=== PATIENT | male | born 1990 | race Hispanic/Latino ===

== ENCOUNTER 2024-09-20 03:40 | Inpatient (IN) | payer SELFPAY ==
[2024-09-20 04:32] LABS: Absolute Monocytes 0.2 K/uL (0.1-1.3); Absolute Neutrophil 9.1 K/uL (1.8-8.0); Basophils % 0.4 % (0-1.3); Eosinophils % 0.1 % (0-4.4); Hematocrit 46.4 % (39.6-49.0); Hemoglobin 15.7 g/dL (13.6-17.9); MCH 28.6 pg (27.0-35.0); MCHC 33.9 g/dL (32.0-36.0); MCV 84.5 fL (80-100); MPV 8.1 fL (7.6-11.3); Monocytes % 2.3 % (3.3-12.3); Neutrophils % 87.2 % (41.7-73.7); Platelets 329 thou/uL (152-406); RBC Red Blood Cell Count 5.48 M/uL (4.33-5.43); Red Cell Distribution Width 13.6 % (12.1-15.2)
[2024-09-20 04:59] LABS: Anion Gap 12.6 mEq/L (5.0-15.0)
[2024-09-20 05:01] LABS: Potassium 1.6 mEq/L (3.5-5.1); Troponin High Sensitivity 65.4 pg/mL (<58.9)
[2024-09-20] MEDS ORDERED: POTASSIUM CL SA 10 MEQ TAB PO ONE (05:05)
[2024-09-20] MEDS ORDERED: ASPIRIN 81 MG CHEWABLE TABLET ONE (05:05)
[2024-09-20] MEDS ORDERED: KCL 20 MEQ/100 mL IVPB 100 ML IV ONE ×2 (05:06→09:42)
[2024-09-20] MEDS ORDERED: NA CHLORIDE 0.9% 1,000 ML ONE (05:06)
[2024-09-20] MEDS ORDERED: Magnesium Sulfate 2gm IVPB 2 G/50 ML BAG IV ONE (05:06)
[2024-09-20 05:25] LABS: Band Neutrophils 8 % (0-1); Blood Morphology Comment NOT SEEN (NOT SEEN); Differential Total Cells Count 100; Lymphocytes 10 % (15-42); Monocytes 2 % (0-10); Platelet Estimate ADEQ; Reactive Lymphocytes 2 %; Segmented Neutrophils 78 % (40-80)
--- NOTE | 2024-09-20 06:10 | RAD REPORT ---
EXAMINATION: CT HEAD WITHOUT CONTRAST CT CERVICAL SPINE WITHOUT CONTRAST CLINICAL INDICATION: Male, 34 years old. BL UE weakness TECHNIQUE: Axial CT images from the skull base to the vertex without intravenous contrast. Axial CT i mages through the cervical spine were obtained without intravenous contrast. Sagittal and coronal reformatted images were created from the data set. Coronal and sagittal reformatted images were creat ed from the data set. One or more of the following dose reduction techniques were used: Automated exposure control, adjustment of the mA and/or kV according to patient size, and/or iterative reconstr uction. Unless otherwise specified, incidental findings do not require dedicated imaging follow-up. [id number]. COMPARISON: No prior exam. FINDINGS: Head: FINDINGS: INTRACRANIAL: No acute intracranial hemorrhage. No hydrocephalus. No mass effect or midline shift. No significant white matter disease. VASCULATURE: No visualized abnormalities in the arteries or dural venous sinuses. SCALP/SKULL: No significant soft tissue or osseous abnormalities. SINUSES: The visualized paranasal sinuses are predominantly clear. No mastoid effusion. Cervical spine: ALIGNMENT: Loss of normal cervical lordosis which may be positional. BONE: Vertebral body heights are maintained. No aggressive osseous lesions. DEGENERATIVE: No significant focal degenerative changes. SOFT TISSUE: No significant abnormalities in the soft tissue of the neck. No acute findings in the stephanie ng apices. IMPRESSION: 1. CT Head: No acute intracranial abnormality. 2. CT Cervical spine: No acute fracture or traumatic malalignment of the cervical spine. Electronically signed by: Luiz Daniels MD 09/20/2024 05:56 AM CDT Due to temporary technical issues with the PACS/[employer] reporting system, reports are being josue d by the in-house radiologist without review as a courtesy to ensure prompt reporting the interpreting radiologist is fully responsible for the content of the report. Transcribed Date/Time: 09/20/2024 6:10 AM
--- NOTE | 2024-09-20 06:11 | RAD REPORT ---
EXAM: CT CHEST ABDOMEN PELVIS ANGIOGRAPHY WITH IV CONTRAST CLINICAL INDICATION: Male, 34 years eval for aortic pathology, BL UE weakness, spine pathology TECHNIQUE: CTA of the aorta was obtained including the chest, abdomen and pelvis, with IV contrast, a s per department protocol. Axial, sagittal and coronal reconstructions were obtained. Post-processing was applied at the acquisition scanner with concurrent physician supervision which in cludes 3D reconstructions, MIPs, volume rendered images and/or shaded surface rendering. One or more of the following dose reduction techniques were used: Automated exposure control, adjustment of the mA and/or kV according to the patient size, and/or iterative reconstruction. Unless otherwise specified, incidental findings do not require dedicated imaging follow-up. [id number]. COMPARISON: No prior exam. FINDINGS: Chest: LOWER NECK: Visualized thyroid gland and soft tissues are normal. LUNGS AND AIRWAYS: Airways are clear. No evidence of airspace or interstitial process.No suspicious a nd/or stable pulmonary nodules. PLEURA: No pleural effusion. No pneumothorax. Hemidiaphragms are normally positioned. MEDIASTINUM AND LYMPH NODES: No mediastinal mass or fluid collection. Normal size mediastinal, hilar, and axillary lymph nodes. THORACIC AORTA: No thoracic aortic aneurysm. PULMONARY ARTERIES: Caliber is within normal limits. HEART: Normal heart size. No coronary calcifications.No significant pericardial effusion. Abdomen/Pelvis UPPER GI: No significant abnormality. LIVER: Hepatic steatosis, but otherwise unremarkable. GALLBLADDER/BILE DUCTS: No biliary ductal dilatation. PANCREAS: No mass, ductal dilation, or leatha-pancreatic fluid. SPLEEN: Unremarkable. ADRENALS: No adrenal masses. KIDNEYS AND URETERS: Normal size and contour. No hydronephrosis.No suspicious renal mass. ABDOMINAL AORTA AND OTHER VESSELS: Normal caliber aorta and IVC. PERITONEUM: No abnormal free fluid. No free air. LYMPH NODES: No pathologic lymphadenopathy. ABDOMINAL WALL: Fat-containing left inguinal hernia which is small. SMALL BOWEL/COLON: Small bowel has normal course and caliber. No colonic wall thickening or pericolon ic inflammatory changes.Normal appendix. URINARY BLADDER: Underdistended but grossly unremarkable. REPRODUCTIVE ORGANS: No pathologic process. MUSCULOSKELETAL: No acute or suspicious osseous abnormality. ADDITIONAL FINDINGS: None. IMPRESSION: No aortic aneurysm or dissection. No acute or significant abnormalities in the chest, abdomen, or pel vis. Electronically signed by: Luiz Daniels MD 09/20/2024 06:00 AM CDT Due to temporary technical issues with the PACS/[employer] reporting system, reports are being josue d by the in-house radiologist without review as a courtesy to ensure prompt reporting the interpreting radiologist is fully responsible for the content of the report. Transcribed Date/Time: 09/20/2024 6:10 AM
[2024-09-20 08:08] LABS: Specific Gravity > 1.030 (1.005-1.030); Sqamous Epithelial None Seen /HPF (None Seen); Urine Bacteria None Seen /HPF (<20); Urine Bilirubin NEGATIVE (Negative); Urine Blood 1+ (Negative); Urine Clarity Clear (Clear); Urine Color Colorless (Yellow); Urine Culture Reflex Order NOT NEEDED; Urine Glucose NEGATIVE (Negative); Urine Ketones NEGATIVE (Negative); Urine Micro Reflex YN NO BILL MICROSCOPIC; Urine Nitrite NEGATIVE (Negative); Urine Protein NEGATIVE (Negative); Urine Urobilinogen Normal (Normal); Urine WBC <5 /HPF (<5); Urine pH 5.5 (5.0-7.0)
[2024-09-20] MEDS ORDERED: LORazepam 2 MG/ML VIAL ONE (08:09)
[2024-09-20 08:17] LABS: Barbiturates NEGATIVE (NEGATIVE); Benzodiazepines NEGATIVE (NEGATIVE); Cocaine NEGATIVE (NEGATIVE); METHAMPHETAM NEGATIVE (NEGATIVE); Methadone NEGATIVE (NEGATIVE); Opiates NEGATIVE (NEGATIVE); Phencyclidine NEGATIVE (NEGATIVE); THC Cannibis NEGATIVE (NEGATIVE)
--- NOTE | 2024-09-20 10:19 | RAD REPORT ---
EXAMINATION: MRI CERVICAL SPINE WITHOUT CONTRAST CLINICAL INDICATION: Male, 34 years old. BL UE weakness, eval for central cord syndrome TECHNIQUE: Multiplanar multisequence MR images were obtained of the cervical spine without intravenou s contrast. Unless otherwise specified, incidental findings do not require dedicated imaging follow-up. COMPARISON: No prior exam. FINDINGS: ALIGNMENT: The cervical spine shows normal alignment. BONE: Vertebral bodies are normal in height. There is a normal marrow signal pattern. Uncovertebral j oint and facet arthropathy contribute to the findings below. CORD: The cervical spinal cord is normal in size, contour and signal intensity. BRAIN: The included intracranial structures are grossly normal. The craniocervical junction is normal . SOFT TISSUE: The paraspinal soft tissues are normal. EVALUATION OF THE INDIVIDUAL LEVELS: C2-3: Unremarkable. C3-4: Unremarkable. C4-5: Unremarkable. C5-6: Broad-based posterior disc bulge. No significant central canal or foraminal stenosis.. C6-7: Broad-based posterior disc bulge. No central canal stenosis. Mild left more than right neural f oraminal narrowing. C7-T1: Unremarkable. IMPRESSION: No acute or significant cervical spine abnormalities. Mild early discogenic and facet changes most no tably at C6-7, contributing to mild left more than right neural foraminal narrowing. No cord signal abnormality.
--- NOTE | 2024-09-20 10:24 | RAD REPORT ---
EXAMINATION: MRI THORACIC SPINE WITHOUT CONTRAST CLINICAL INDICATION: Male, 34 years old. BL UE weakness, eval for central cord syndrome TECHNIQUE: Multiplanar multisequence MR images were obtained of the thoracic spine without IV gadolin ium contrast. Unless otherwise specified, incidental findings do not require dedicated imaging follow-up. COMPARISON: No prior exam. FINDINGS: Localizer capsule positioned opposite C7-T1 level. ALIGNMENT: The lumbar spine has normal alignment. BONE: Vertebral bodies are normal in height. There is a normal marrow signal pattern. CORD: No abnormal signal in the cord. No cord edema, suspicion for mass, or myelomalacia. SOFT TISSUE: The included paraspinal soft tissues and retroperitoneal structures are grossly normal. No abnormal masses or enhancement. EVALUATION OF THE INDIVIDUAL LEVELS: No significant disc herniation. No central canal stenosis or for aminal narrowing. IMPRESSION: No significant thoracic spine abnormalities.
--- NOTE | 2024-09-20 10:34 | EDPHYS ---
Physician Documentation [facility] Name: Gabriel Lemons Age: 34 yrs Sex: Male : 1990 Arrival Date: 09/20/2024 Time: 03:40 Bed 6 Private MD: ED Physician Sukumar Gutierrez HPI: 09/20 04:13 This 34 yrs old Male presents to ER via Ambulatory with complaints of ec2 Numbness, Weakness, Shortness Of Breath. 04:13 Patient arrives today for evaluation of bilateral upper extremity mobility issues. ec2 Patient reports that he was having some back pain yesterday approximately 36 hours prior to arrival, was seen, diagnosed with a lumbar strain and states that has been progressively getting worse. Patient complaining of weakness in the bilateral upper extremities and issues with movement. Denies any falls injuries or trauma. No history of spinal cord pathology, no chronic medical problems, no neuromuscular disorders. Patient denies any bowel or bladder incontinence, denies any saddle anesthesia.. Historical: - Allergies: 03:55 No Known Allergies; bm8 - Home Meds: 03:55 Propranolol Oral [Active]; bm8 - PMHx: 03:55 None; bm8 - PSHx: 03:55 None; bm8 - Immunization history:: Adult Immunizations up to date. - Infectious Disease History:: Denies. - Social history:: Smoking status: Reported history of juuling and/or vaping. Patient/guardian denies using alcohol, street drugs. ROS: 04:13 Constitutional: as per hpi ec2 Exam: 04:13 CT study not indicated or reported. Reason for not performing CT: performing, not a ec2 stroke 04:13 Constitutional: GEN: NAD Head: atraumatic Eyes: EOMI Ears: External ears are normal. CV: regular rate LUNGS: no respiratory distress ABD: non-distended SKIN: no evidence of rashes MSK: no evidence of trauma. No C/C/L-spine TTP or deformities noted. Neuro: Cranial nerves II through XII intact, strength is 4 out of 5 in the bilateral upper extremities with intact sensation in the bilateral lower extremities. Bilateral lower extremities with equal strength 5 out of 5 as well as equal sensation. Vital Signs: 03:53 BP 161 / 91; Pulse 94; Resp 18; Temp 97.3; Pulse Ox 98% ; Weight 113.4 kg; Height 6 ft. bm8 1 in. ; Pain 6/10; 04:50 BP 130 / 76; Pulse 82; Resp 18; Temp 97.3; Pulse Ox 95% ; Pain 6/10; bm8 06:27 BP 133 / 75; Pulse 97; Resp 18; Temp 97.3; Pulse Ox 97% ; Pain 0/10; bm8 07:08 BP 135 / 78; Pulse 96; Resp 18; Pulse Ox 94% ; bm8 07:53 BP 125 / 77; Pulse 96; Pulse Ox 96% on R/A; ll1 09:49 BP 110 / 70; Pulse 96; Resp 17; Pulse Ox 98% on R/A; ll1 11:00 BP 138 / 86; Pulse 100; Resp 18; Pulse Ox 99% on R/A; ld1 12:00 BP 118 / 7; Pulse 109; Resp 24; Pulse Ox 99% on R/A; ld1 13:00 BP 125 / 70; Pulse 113; Resp 20; Pulse Ox 99% on R/A; ld1 14:00 BP 130 / 52; Pulse 104; Resp 25; Pulse Ox 99% on R/A; ld1 15:00 BP 121 / 85; Pulse 100; Resp 23; Pulse Ox 96% on R/A; ld1 03:53 Body Mass Index 32.98 (113.40 kg, 185.42 cm) bm8 03:53 Pain Scale: Adult bm8 04:50 Pain Scale: Adult bm8 06:27 Pain Scale: Adult bm8 Luis Coma Score: 04:21 Eye Response: spontaneous(4). Motor Response: obeys commands(6). Verbal Response: dd2 oriented(5). Total: 15. 04:50 Eye Response: spontaneous(4). Motor Response: obeys commands(6). Verbal Response: bm8 oriented(5). Total: 15. 06:27 Eye Response: spontaneous(4). Motor Response: obeys commands(6). Verbal Response: bm8 oriented(5). Total: 15. MDM: 03:50 Medical Screening Exam initiated ec2 04:19 TNKase (Tenecteplase) Screening: Not Applicable. Data reviewed: vital signs, nurses ec2 notes. 04:26 ED course: EKG independently reviewed and interpreted by fl, shows normal sinus rhythm, ec2 rate of 85, no acute ST segment elevations, intervals are nonactionable.. 05:03 ED course: Potassium with marked hypokalemia at 1.6. CBC is nonactionable. Does have ec2 troponin elevation at 65.4. Will give the patient p.o., and IV potassium, will give the patient magnesium as well.. Possible also hypokalemic periodic paralysis. 06:43 ED course: Will sign patient out to oncoming physician with pending imaging, ec2 reassessment, admission for elevated cardiac enzymes as well as hypokalemia requiring replenishment.. 06:43 Transition of care: After a detail discussion of the patient's case, care is ec2 transferred to Sukumar Gutierrez DO. 07:00 Transition of care: Care assumed from Isiah Tang MD. ED course: 34-year-old male with ms3 bilateral upper extremity weakness. Potassium found to be low. Patient pending MRI cervical and thoracic spine.. 10:34 Differential diagnosis: metabolic disorder, drug effects, Spinal stenosis. ms3 Consideration of Admission/Observation Patient was admitted/placed on observation. Management of patient was discussed with the following: Airborne Sensor Specialist: Dr Peoples- He will consult. Trend troponins. I considered the following discharge prescriptions or medication management in the emergency department Medications were administered in the Emergency Department. See MAR. Independent interpretation of the following test(s) in the Emergency Department EKG: See my EKG interpretation above. Counseling: I had a detailed discussion with the patient and/or guardian regarding the historical points, exam findings, and any diagnostic results supporting the discharge/admit diagnosis, lab results, radiology results, the need for further work-up and treatment in the hospital. 09/20 04:08 Order name: Basic Metabolic Panel; Complete Time: 06:15 ec2 09/20 04:08 Order name: CBC with Diff; Complete Time: 06:15 ec2 09/20 04:08 Order name: Troponin HS; Complete Time: 06:15 ec2 09/20 04:16 Order name: UAM; Complete Time: 08:18 ec2 09/20 04:16 Order name: UDS; Complete Time: 08:18 ec2 09/20 04:50 Order name: Manual Differential; Complete Time: 06:15 EDMS 09/20 05:16 Order name: Creatine Phosphokinase; Complete Time: 06:15 EDMS 09/20 09:03 Order name: Potassium; Complete Time: 09:36 ll1 09/20 09:38 Order name: Troponin High Sensitivity; Complete Time: 10:27 ms3 09/20 10:30 Order name: Magnesium; Complete Time: 12:54 ms3 09/20 11:15 Order name: Phosphorus; Complete Time: 01:46 EDMS 09/20 11:15 Order name: T4 Free; Complete Time: 01:46 EDMS 09/20 11:15 Order name: Thyroid Stimulating Hormone; Complete Time: 01:46 EDMS 09/20 11:15 Order name: Urinalysis w/ reflexes EDMS 09/20 11:15 Order name: Basic Metabolic Panel EDMS 09/20 11:15 Order name: Basic Metabolic Panel EDMS 09/20 11:15 Order name: CBC with Automated Diff EDMS 09/20 11:15 Order name: CBC with Automated Diff EDMS 09/20 11:15 Order name: Lipid Profile EDMS 09/20 11:15 Order name: Lipid Profile EDMS 09/20 11:19 Order name: Troponin High Sensitivity EDMS 09/20 11:19 Order name: Troponin High Sensitivity; Complete Time: 01:46 EDMS 09/20 11:19 Order name: Troponin High Sensitivity EDMS 09/20 04:08 Order name: CT Head C Spine; Complete Time: 06:15 ec2 09/20 04:19 Order name: CT Aorta for Dissection; Complete Time: 06:16 ec2 09/20 06:24 Order name: C Spine Wo Cont; Complete Time: 10:27 EDMS 09/20 06:24 Order name: Thoracic Spine Wo Contr; Complete Time: 10:27 EDMS 09/20 04:08 Order name: IV; Complete Time: 04:25 ec2 09/20 04:08 Order name: Cardiac monitoring; Complete Time: 04:25 ec2 09/20 04:08 Order name: EKG - Nurse/Tech; Complete Time: 04:25 ec2 09/20 04:08 Order name: Labs collected and sent; Complete Time: 04:25 ec2 09/20 04:08 Order name: O2 Per Protocol; Complete Time: 04:25 ec2 09/20 04:08 Order name: O2 Sat Monitoring; Complete Time: 04:25 ec2 Administered Medications: 05:12 Drug: Magnesium Sulfate IVPB 2 grams IVPB once over 30 mins Route: IVPB; Infused Over: bm8 30 mins; Site: right antecubital; 06:27 Follow up: Response: No adverse reaction; IV Status: Completed infusion bm8 05:12 Drug: Aspirin PO Chewable Tablet 324 mg PO once; 81 mg tablets x 4 Route: PO; bm8 06:27 Follow up: Response: No adverse reaction bm8 05:13 Drug: Potassium Chloride PO 40 mEq PO once Route: PO; bm8 06:27 Follow up: Response: No adverse reaction bm8 05:13 Drug: Potassium Chloride IV 20 mEq IV at calculated rate once; administer over 1-2 bm8 hours Route: IV; Rate: calculated rate; Site: right antecubital; 07:49 Follow up: Response: No adverse reaction; IV Status: Completed infusion; IV Intake: ll1 100ml 08:13 Drug: Ativan IVP 1 mg IVP once; For MRI Route: IVP; Site: right antecubital; 1 09:03 Follow up: Response: No adverse reaction; Anxiety decreased; RASS: Alert and Calm (0) [facility] 09:49 Drug: Potassium Chloride IV 20 mEq IV at calculated rate once; administer over 1-2 ll1 hours Route: IV; Rate: calculated rate; Site: right antecubital; Disposition Summary: 09/20/24 10:34 Hospitalization Ordered Notes: Hospitalization Status: Inpatient Admission ms3 Provider: Isidoro Lopez ms3 Condition: Stable ms3 Problem: new ms3 Symptoms: are unchanged ms3 Bed/Room Type: Standard ms3 Location: Telemetry/MedSurg (Inpatient)(09/20/24 15:20) Room Assignment: [facility](09/20/24 15:20) Diagnosis - Hypokalemia ms3 - Elevated Troponin ms3 Forms: - Medication Reconciliation Form ms3 - SBAR form ms3 - Leadership Thank You Letter ms3 Critical care time excluding procedures: 10:34 Critical care time: Bedside Care: 45 minutes, Consultation: 5 minutes, Family ms3 Intervention: 10 minutes. Total time: 60 minutes Signatures: Dispatcher [employer] Mackenzie Luis Lynsay, RN RN ll1 Sukumar Gutierrez DO DO ms3 Isiah Tang MD MD 2 Abdi, Ronal, RN RN bm8 Corrections: (The following items were deleted from the chart) 04:08 04:08 BASIC METABOLIC PANEL+C.LAB.BRZ ordered. EDMS EDMS 04:08 04:08 CBC+H.LAB.BRZ ordered. EDUT EDMS 04:08 04:08 Troponin High Sensitivity+C.LAB.BRZ ordered. EDMS EDMS 04:09 04:08 Head C Spine MPR Wo Con+CT.RAD.BRZ ordered. EDUT EDMS 04:09 04:09 Chest Abdomen Pelvis W Con+CT.RAD.BRZ ordered. EDUT EDMS 04:18 04:13 Patient arrives today for evaluation of bilateral upper extremity mobility ec2 issues. Patient reports that he was having some back pain yesterday approximately 36 hours prior to arrival, was seen, diagnosed with a lumbar strain and states that has been progressively getting worse. Patient complaining of weakness in the bilateral upper extremities and issues with movement. Denies any falls injuries or trauma. No history of spinal cord pathology, no chronic medical problems, no neuromuscular disorders.. ec2 10:37 06:21 Critical care time: Bedside Care: 30 minutes. Total time: 30 minutes ec2 ms3 13:29 10:34 Intensive Care Unit ms3 bd 13:29 10:34 ms3 bd 15:20 13:29 [facility] ER HOLD bd bd 15:20 13:29 ERHOLD- bd bd
--- NOTE | 2024-09-20 10:34 | ER ---
Nurse's Notes [facility] Name: Gabriel Lemons Age: 34 yrs Sex: Male : 1990 Arrival Date: 09/20/2024 Time: 03:40 Bed 6 Private MD: Diagnosis: Hypokalemia;Elevated Troponin Presentation: 09/20 03:53 Chief complaint: Patient states: I have lower back pain that is causing everything from bm8 my hips down to be weak and numb since friday. Coronavirus screen: Vaccine status: Patient reports receiving the 2nd dose of the covid vaccine. Ebola Screen: Patient negative for fever greater than or equal to 101.5 degrees Fahrenheit, and additional compatible Ebola Virus Disease symptoms Patient denies exposure to infectious person. Patient denies travel to an Ebola-affected area in the 21 days before illness onset. No symptoms or risks identified at this time. No acute neurological deficit is noted. Pre-hospital glucose is not applicable to this patient. 03:53 Method Of Arrival: Ambulatory bm8 03:54 Initial Sepsis Screen: Does the patient meet any 2 criteria? No. Patient's initial bm8 sepsis screen is negative. Does the patient have a suspected source of infection? No. Patient's initial sepsis screen is negative. Risk Assessment: Do you want to hurt yourself or someone else? Patient reports no desire to harm self or others. Onset of symptoms was September 18, 2024. 03:54 Acuity: TARAN 3 bm8 Triage Assessment: 03:55 General: Appears distressed, uncomfortable, Behavior is cooperative, appropriate for bm8 age. Pain: Complains of pain in lumbar area, left low back and right low back Pain currently is 6 out of 10 on a pain scale. Aggravated by exercise, increased activity, weight bearing. EENT: No deficits noted. No signs and/or symptoms were reported regarding the EENT system. Neuro: Level of Consciousness is awake, alert, obeys commands, Oriented to person, place, time, situation, Appropriate for age Weakness in bilateral leg(s) Reports numbness in right leg and left leg since friday. Cardiovascular: No deficits noted. Reports shortness of breath, Denies chest pain, Heart tones S1 S2 present Capillary refill < 3 seconds in bilateral fingers Patient's skin is warm and dry. Respiratory: Airway is patent Trachea midline Respiratory effort is even, unlabored, Respiratory pattern is regular, symmetrical, Breath sounds are clear bilaterally. GI: : No signs and/or symptoms were reported regarding the genitourinary system. Derm: No signs and/or symptoms reported regarding the dermatologic system. Musculoskeletal: Circulation, motion, and sensation intact. Capillary refill < 3 seconds, in bilateral fingers. toes. Reports weakness in right leg and left leg pain in right leg and left leg Pain is 6 out of 10 on a pain scale. Historical: - Allergies: 03:55 No Known Allergies; bm8 - Home Meds: 03:55 Propranolol Oral [Active]; bm8 - PMHx: 03:55 None; bm8 - PSHx: 03:55 None; bm8 - Immunization history:: Adult Immunizations up to date. - Infectious Disease History:: Denies. - Social history:: Smoking status: Reported history of juuling and/or vaping. Patient/guardian denies using alcohol, street drugs. Screenin:21 Abuse screen: Denies threats or abuse. Denies injuries from another. Nutritional dd2 screening: No deficits noted. Tuberculosis screening: No symptoms or risk factors identified. 04:50 [facility] ED Fall Risk Assessment (Adult) History of falling in the last 3 months, bm8 including since admission No falls in past 3 months (0 pts) Confusion or Disorientation No (0 pts) Intoxicated or Sedated No (0 pts) Impaired Gait No (0 pts) Mobility Assist Device Used No (0 pt) Altered Elimination No (0 pt) Score/Fall Risk Level 0 - 2 = Low Risk Oriented to surroundings, Maintained a safe environment, Educated pt \T\ family on fall prevention, incl call for assistance when getting out of bed, Assessed \T\ reinforced patient's understanding of fall precautions, Hourly rounding (assess needs \T\ fall precautionary measures) done, Used ambulatory aids as needed (educated on \T\ assisted with), Used gait belt as appropriate. Assessment: 04:50 Reassessment: Patient appears in no apparent distress at this time. Patient and/or bm8 family updated on plan of care and expected duration. Pain level reassessed. Patient is alert, oriented x 3, equal unlabored respirations, skin warm/dry/pink. 06:25 Reassessment: Patient appears in no apparent distress at this time. Patient and/or bm8 family updated on plan of care and expected duration. Pain level reassessed. Patient is alert, oriented x 3, equal unlabored respirations, skin warm/dry/pink. Patient states feeling better. Patient states symptoms have improved. Neuro: Level of Consciousness is awake, alert, obeys commands, Oriented to person, place, time, situation, Appropriate for age Moves all extremities. Weakness. Cardiovascular: Denies chest pain, Capillary refill < 3 seconds in bilateral fingers Patient's skin is warm and dry. Rhythm is sinus tachycardia. Respiratory: Airway is patent Trachea midline Respiratory effort is even, unlabored, Respiratory pattern is regular, symmetrical, Breath sounds are clear bilaterally. Musculoskeletal: Reports numbness and weakness improving. 07:00 Reassessment: report received from sales technician RN. ll1 07:49 Reassessment: No changes from previously documented assessment. Patient and/or family ll1 updated on plan of care and expected duration. Pain level reassessed. Patient is alert, oriented x 3, equal unlabored respirations, skin warm/dry/pink. 09:50 Reassessment: No changes from previously documented assessment. Patient and/or family ll1 updated on plan of care and expected duration. Pain level reassessed. Patient is alert, oriented x 3, equal unlabored respirations, skin warm/dry/pink. Vital Signs: 03:53 BP 161 / 91; Pulse 94; Resp 18; Temp 97.3; Pulse Ox 98% ; Weight 113.4 kg; Height 6 ft. bm8 1 in. ; Pain 6/10; 04:50 BP 130 / 76; Pulse 82; Resp 18; Temp 97.3; Pulse Ox 95% ; Pain 6/10; bm8 06:27 BP 133 / 75; Pulse 97; Resp 18; Temp 97.3; Pulse Ox 97% ; Pain 0/10; bm8 07:08 BP 135 / 78; Pulse 96; Resp 18; Pulse Ox 94% ; bm8 07:53 BP 125 / 77; Pulse 96; Pulse Ox 96% on R/A; ll1 09:49 BP 110 / 70; Pulse 96; Resp 17; Pulse Ox 98% on R/A; ll1 11:00 BP 138 / 86; Pulse 100; Resp 18; Pulse Ox 99% on R/A; ld1 12:00 BP 118 / 7; Pulse 109; Resp 24; Pulse Ox 99% on R/A; ld1 13:00 BP 125 / 70; Pulse 113; Resp 20; Pulse Ox 99% on R/A; ld1 14:00 BP 130 / 52; Pulse 104; Resp 25; Pulse Ox 99% on R/A; ld1 15:00 BP 121 / 85; Pulse 100; Resp 23; Pulse Ox 96% on R/A; ld1 03:53 Body Mass Index 32.98 (113.40 kg, 185.42 cm) bm8 03:53 Pain Scale: Adult bm8 04:50 Pain Scale: Adult bm8 06:27 Pain Scale: Adult bm8 Luis Coma Score: 04:21 Eye Response: spontaneous(4). Motor Response: obeys commands(6). Verbal Response: dd2 oriented(5). Total: 15. 04:50 Eye Response: spontaneous(4). Motor Response: obeys commands(6). Verbal Response: bm8 oriented(5). Total: 15. 06:27 Eye Response: spontaneous(4). Motor Response: obeys commands(6). Verbal Response: bm8 oriented(5). Total: 15. ED Course: 03:41 Patient arrived in ED. [id number] 03:41 Isiah Tang MD is Attending Physician. ec2 03:53 Ronal Abdi, RN is Primary Nurse. bm8 03:55 Triage completed. bm8 03:55 Arm band placed on right wrist. bm8 04:21 Client placed on continuous cardiac and pulse oximetry monitoring. NIBP monitoring dd2 applied. supervisor powder and primer canning on. Door closed. Noise minimized. Warm blanket given. Pillow given. Verbal reassurance given. 04:21 Patient has correct armband on for positive identification. Bed in low position. Call dd2 light in reach. Side rails up X2. 04:21 No provider procedures requiring assistance completed. Initial lab(s) drawn, by ED dd2 staff, sent to lab. EKG done, by ED staff, reviewed by Isiah Tang MD. Inserted saline lock: 20 gauge in right antecubital area, using aseptic technique. Blood collected. Flushed with 10 mL NS. Patient maintains SpO2 saturation greater than 95% on room air. 04:25 Basic Metabolic Panel Sent. dd2 04:25 CBC with Diff Sent. dd2 04:25 Troponin HS Sent. dd2 05:18 CT Head C Spine In Process Unspecified. EDMS 05:18 CT Aorta for Dissection In Process Unspecified. EDMS 07:09 Attending Physician role handed off by Isiah Tang MD ms3 07:09 Sukumar Gutierrez DO is Attending Physician. ms3 07:16 Primary Nurse role handed off by Ronal Abdi, RN bd 07:20 Dayday Chandler, RN is Primary Nurse. ll1 08:52 C Spine Wo Cont In Process Unspecified. EDMS 08:52 Thoracic Spine Wo Contr In Process Unspecified. EDMS 10:33 Isidoro Lopez MD is Hospitalizing Provider. ms3 16:36 Patient admitted, IV remains in place. ld1 Administered Medications: 05:12 Drug: Magnesium Sulfate IVPB 2 grams IVPB once over 30 mins Route: IVPB; Infused Over: bm8 30 mins; Site: right antecubital; 06:27 Follow up: Response: No adverse reaction; IV Status: Completed infusion bm8 05:12 Drug: Aspirin PO Chewable Tablet 324 mg PO once; 81 mg tablets x 4 Route: PO; bm8 06:27 Follow up: Response: No adverse reaction bm8 05:13 Drug: Potassium Chloride PO 40 mEq PO once Route: PO; bm8 06:27 Follow up: Response: No adverse reaction bm8 05:13 Drug: Potassium Chloride IV 20 mEq IV at calculated rate once; administer over 1-2 bm8 hours Route: IV; Rate: calculated rate; Site: right antecubital; 07:49 Follow up: Response: No adverse reaction; IV Status: Completed infusion; IV Intake: ll1 100ml 08:13 Drug: Ativan IVP 1 mg IVP once; For MRI Route: IVP; Site: right antecubital; ll1 09:03 Follow up: Response: No adverse reaction; Anxiety decreased; RASS: Alert and Calm (0) ll1 09:49 Drug: Potassium Chloride IV 20 mEq IV at calculated rate once; administer over 1-2 ll1 hours Route: IV; Rate: calculated rate; Site: right antecubital; Medication: 04:21 VIS not applicable for this client. dd2 Intake: 07:49 IV: 100ml; Total: 100ml. ll1 Outcome: 10:34 Decision to Hospitalize by Provider. ms3 16:35 Admitted to Med/surg accompanied by tech, via wheelchair, ld1 16:35 Condition: stable 16:35 Instructed on the need for admit, 16:36 Patient left the ED. ld1 Signatures: Dispatcher [employer] Maceknzie Luis Lynsay RN RN ll1 Sukumar Gutierrez, DO ms3 Elinor Gutierrez RN RN ld1 Codie Holguin6 Isiah Tang MD MD ec2 Ronal Abdi RN RN bm8 SANTI MALAGON RN RN dd2 Corrections: (The following items were deleted from the chart) 07:20 07:00 Reassessment: report received from sales technician ISSA brasher
[2024-09-20] MEDS ORDERED: ONDANSETRON 4 MG/2 ML VIAL IV PRN (11:07)
[2024-09-20] MEDS ORDERED: ACETAMINOPHEN 325 MG TABLET PO PRN (11:14)
--- NOTE | 2024-09-20 11:19 | P.HP ---
Certification for Inpatient Patient admitted to: Inpatient With expected LOS: >2 Midnights Patient will require the following post-hospital care: None Practitioner: I am a practitioner with admitting privileges, knowledge of patient current condition, hospital course, and medical plan of care. Services: Services provided to patient in accordance with Admission requirements found in Title 42 Section 412.3 of the Code of Federal Regulations Patient History Date of Service: 09/20/24 Reason for admission: BUE Weakness\R sided Numbness, Chest pain, Hypokalemia History of Present Illness: Patient is a 34-year-old male with no known past medical history who presents with complaint of inability to move his body when he woke up around 2 AM. Patie nt reported that he noticed swelling in his upper extremities. Patient also reports right-sided numbness\tingling and BUE weakness. Patient reports chest pain located in the left chest area rated as 5/10 in severity and described as burning in quality. Patient indicated that he developed poor handgrip as he could not hold onto objects. Patient also indicated that he had low back pain 2 days ago and was seen at an urgent care where he was medicated with steroids, pain medication and discharged home. Patient reported associated signs and symptoms of palpitations, shortness of breath, dizziness and fatigue. Patient denies any other signs and symptoms. Symptoms are aggravated or relieved by nothing. Patient decided to present to the hospital due to worsening symptoms. Allergies No Known Allergies Allergy (Unverified 09/20/24 12:10) Home medications list reviewed: No - Past Medical/Surgical History -: Obesity Past Surgical History: Patient denies surgical history - Family History Father -: Cancer Notes: Colon - Social History Smoking Status: Never smoker Alcohol use: Yes CD- Drugs: No Caffeine use: No Place of Residence: Home Review of Systems General: Chills, Weakness Eyes: Unremarkable ENT: Unremarkable Respiratory: Shortness of Breath Cardiovascular: Chest Pain, Palpitations Gastrointestinal: Unremarkable Musculoskeletal: Back Pain Integumentary: Unremarkable Neurological: Weakness, Numbness Lymphatics: Unremarkable Physical Examination - Physical Exam General: Alert, In no apparent distress, Oriented x3, Cooperative HEENT: Atraumatic, PERRLA, Mucous membr. moist/pink, EOMI, Sclerae nonicteric Neck: Supple, 2+ carotid pulse no bruit, No LAD, Without JVD or thyroid abnormality Respiratory: Clear to auscultation bilaterally, Normal air movement Cardiovascular: No edema, Regular rate/rhythm, Normal S1 S2 Capillary refill: <2 Seconds Gastrointestinal: Normal bowel sounds, Soft and benign, No tenderness Musculoskeletal: No clubbing, No swelling, No tenderness Integumentary: No rashes, No erythema Neurological: Normal gait, Normal speech, Normal strength at 5/5 x4 extr, Normal affect Lymphatics: No axilla or inguinal lymphadenopathy - Studies Laboratory Data (last 24 hrs) 09/20/24 09/20/24 09/20/24 09:10 04:19 04:19 WBC 10.50 Hgb 15.7 Hct 46.4 Plt Count 329 Sodium 139 Potassium 2.8 L D 1.6 L* BUN 19 H Creatinine 1.13 Glucose 210 H Assessment and Plan - Plan Hypokalemia. --Replete as needed. --Will reassess potassium levels. Hypophosphatemia. --Replete as needed. Bilateral Upper Extremity weakness\Numbness\Tingling Difficulty walking. --Resolved at time of assessment --CT head unremarkable for any acute intracranial abnormalities. --MRI cervical\thoracic spine unremarkable for any acute findings. --Continue supportive care. Chest pain. --To rule out ACS --Serial troponins initially elevated but trending down. --Cardiology consulted. Recommendations appreciated. --Telemetry to monitor for any significant arrhythmia. --Echocardiogram pending to assess cardiac structures and functions. Anxiety disorder. --Ativan as needed. Class I obesity. --Likely secondary to excess calories intake. --Patient counseled on weight reduction, diet and exercise therapy. Low back pain. --MRI lumbar pending. --Continue current pain medication regimen. DVT prophylaxis with Lovenox subQ. Discharge Plan: Home Plan to discharge in: 48 Hours - Advance Directives Does patient have a Living Will: No Does patient have a Durable POA for Healthcare: No - Code Status/Comfort Care Code Status Assessed: Yes Code Status: Full Code Physician Review: Patient Assessed, Agree with Above Assessment and Plan Critical Care: No
[2024-09-20 16:54] LABS: Phosphorus 2.1 mg/dL (2.5-4.9); Thyroid Stimulating Hormone 0.54 uIU/mL (0.358-3.740)
[2024-09-20 17:13] VITALS: BMI 33.0
[2024-09-20 17:14] VITALS: O2SAT 96
[2024-09-20] MEDS: HYDROCODONE/APAP 10/325 TAB PO PRN (20:08)
[2024-09-20] MEDS: ATORVASTATIN 40 MG TAB PO SCH (20:08)
[2024-09-20] MEDS: POTASSIUM PHOS IN 0.9 % NACL 15 MMOL/250 ML BAG IV ONE (21:57)
[2024-09-20] MEDS: LORazepam 2 MG/ML VIAL IV PRN (22:09)
[2024-09-21 06:05] LABS: Absolute Eosinophils 0.1 K/uL (0-0.5); Absolute Lymphocytes (CBC) 2.4 K/uL (0.7-4.9); Absolute Monocytes 0.9 K/uL (0.1-1.3); Absolute Neutrophil 8.9 K/uL (1.8-8.0); Basophils % 0.4 % (0-1.3); Eosinophils % 0.7 % (0-4.4); Hematocrit 40.9 % (39.6-49.0); Hemoglobin 13.9 g/dL (13.6-17.9); Lymphocytes % 19.4 % (15.3-44.8); MCH 28.5 pg (27.0-35.0); MCV 83.9 fL (80-100); MPV 8.3 fL (7.6-11.3); Neutrophils % 72.5 % (41.7-73.7); Nucleated Red Blood Cells % 0.1 % (0-0); Platelets 280 thou/uL (152-406); RBC Red Blood Cell Count 4.88 M/uL (4.33-5.43); Red Cell Distribution Width 14.2 % (12.1-15.2)
[2024-09-21 06:21] LABS: Anion Gap 6.8 mEq/L (5.0-15.0); Potassium 4.8 mEq/L (3.5-5.1)
[2024-09-21] MEDS: ENOXAPARIN 40 MG/0.4 ML SQ SCH (09:35)
--- NOTE | 2024-09-21 11:44 | P.CNS ---
Date of Consult: 09/21/24 Chief Complaint: BUE Weakness\R sided Numbness, Chest pain, Hypokalemia History of Present Illness: Patient with no significant PMH presented with generalized malaise, weakness, body aches, dneies chest pain, no palpitations, no syncope, no SOB, no WRIGHT. Allergies No Known Allergies Allergy (Unverified 09/20/24 12:10) Home medications list reviewed: Yes - Past Medical/Surgical History -: Obesity - Family History Father Medical History: Cancer Notes: Colon - Social History Alcohol use: Yes CD- Drugs: No Caffeine use: No Place of Residence: Home Review of Systems 10-point ROS is otherwise unremarkable Physical Examination Temp Pulse Resp BP Pulse Ox 97.8 F 69 16 118/70 97 09/21/24 08:00 09/21/24 08:00 09/21/24 08:00 09/21/24 08:00 09/21/24 08:00 General: Alert, In no apparent distress HEENT: Atraumatic, PERRLA, Mucous membr. moist/pink, EOMI, Sclerae nonicteric Neck: Supple, 2+ carotid pulse no bruit, No LAD, Without JVD or thyroid abnormality Respiratory: Clear to auscultation bilaterally, Normal air movement Cardiovascular: Regular rate/rhythm, Normal S1 S2 Gastrointestinal: Normal bowel sounds, No tenderness Musculoskeletal: No tenderness Integumentary: No rashes Neurological: Normal gait, Normal speech, Normal tone, Normal affect Lymphatics: No axilla or inguinal lymphadenopathy Laboratory Data (last 24 hrs) 09/20/24 11:10 Magnesium 2.2 - Problems (1) Elevated troponin Current Visit: Yes Status: Acute Plan: Patient denies chest pain with normal EKG, enzymes are trending down, patient got no risk factors for CAD Type 2 LA from possible viral illness vs mild rhabdo get echo, if normal, no further cardiac work up needed.
[2024-09-21 12:54] VITALS: BP 125/75; TEMP 98.7
--- NOTE | 2024-09-21 16:30 | P.DS ---
Admission Date: 09/20/24 Discharge Date: 09/21/24 Disposition: ROUTINE DISCHARGE Discharge Condition: FAIR Reason for Admission: BUE Weakness\R sided Numbness, Chest pain, Hypokalemia Brief History of Present Illness: Patient is a 34-year-old male with no known past medical history who presents with complaint of inability to move his body when he woke up around 2 AM. Patient reported that he noticed swelling in his upper extremities. Patient also reports right-sided numbness\tingling and BUE weakness. Patient reports chest pain located in the left chest area rated as 5/10 in severity and described as burning in quality. Patient indicated that he developed poor handgrip as he could not hold onto objects. Patient also indicated that he had low back pain 2 days ago and was seen at an urgent care where he was medicated with steroids, pain medication and discharged home. Patient reported associated signs and symptoms of palpitations, shortness of breath, dizziness and fatigue. He was recently started on propranolol for anxiety according to the spouse. Patient found to have mildly elevated troponin and severe hypokalemia. Potassium replacement was started in the ED and patient admitted for further management. Hospital Course: Diagnosis Hypokalemia paralysis. Hypophosphatemia. Chest pain. Anxiety disorder. Low back pain. Patient admitted to the medical floor, troponin trended peaked at 201 and then trended down. Hypokalemia was rapidly corrected suggesting transient transcellular shift. Patient suspected to have experienced hypokalemic paralysis. His symptoms have resolved. Patient was evaluated by cardiology for elevated troponin. Elevated troponin deemed secondary to demand ischemia. No ACS. Lipid profile checked is within normal limit. Echocardiogram done and the result is pending. Thyroid function test was within normal limits. Patient demanded to go home. Case discussed with cardiology Dr. Campoverde who is yet to read his echocardiogram. Ok to discharge per Dr. Campoverde. Dr. Campoverde plans to follow-up with patient if echocardiogram comes back abnormal. Patient prescribed daily aspirin. Patient advised to establish care with a PCP to reevaluate his thyroid function in the near future. He is also advised to follow-up with nephrology Dr. Vicente to evaluate for further evaluate the transient hypokalemia. Vital Signs/Physical Exam: Temp Pulse Resp BP Pulse Ox 98.7 F 78 16 125/75 97 09/21/24 12:00 09/21/24 12:00 09/21/24 12:00 09/21/24 12:00 09/21/24 12:00 General: Alert, In no apparent distress, Oriented x3 HEENT: Mucous membr. moist/pink Neck: JVD not distended Respiratory: Clear to auscultation bilaterally, Normal air movement Cardiovascular: No edema, Regular rate/rhythm, Normal S1 S2 Gastrointestinal: Normal bowel sounds, Soft and benign, Non-distended, No tenderness Musculoskeletal: No swelling Integumentary: No rashes, No cyanosis Neurological: Normal speech, Normal strength at 5/5 x4 extr Laboratory Data at Discharge: WBC 12.20 thou/uL (4.3-10.9) H 09/21/24 05:49 Hgb 13.9 g/dL (13.6-17.9) D 09/21/24 05:49 Hct 40.9 % (39.6-49.0) 09/21/24 05:49 Plt Count 280 thou/uL (152-406) 09/21/24 05:49 Sodium 140 mEq/L (136-145) 09/21/24 05:49 Potassium 4.8 mEq/L (3.5-5.1) D 09/21/24 05:49 BUN 12 mg/dL (7-18) 09/21/24 05:49 Creatinine 0.94 mg/dL (0.70-1.30) 09/21/24 05:49 Glucose 112 mg/dL (74-106) H 09/21/24 05:49 Phosphorus 2.1 mg/dL (2.5-4.9) L 09/20/24 16:27 Magnesium Cancelled 09/20/24 18:00 Triglycerides 123 mg/dL (<150) 09/21/24 05:49 Cholesterol 142 mg/dL (<200) 09/21/24 05:49 HDL Cholesterol 37 mg/dL (40-60) L 09/21/24 05:49 Cholesterol/HDL Ratio 3.84 09/21/24 05:49 Home Medications: Aspirin [Aspirin EC 81 MG] 81 mg PO DAILY #30 tab 09/21/24 New Medications: Aspirin [Aspirin EC 81 MG] 81 mg PO DAILY #30 tab Physician Discharge Instructions: Please call cardiology Dr. Campoverde's office regarding the results of your echocardiogram within the next couple of days. Diet: AHA Activity: Ad nhi Followup: Rene Vicente, [ACTIVE - CAN ADMIT] - 1 Week (Please follow-up to further evaluate the transient low potassium level. Please call office for appointment.) NONE,NONE [Primary Care Provider] - 1-2 Weeks (Please find a PCP for regular checkup. You need a repeat thyroid function test to confirm you have a normal thyroid function.) Time spent managing pt's care (in minutes): 38
--- NOTE | 2024-09-22 11:44 | ECHO ---
HEIGHT: 6 ft 1 in WEIGHT: 250 lb 0 oz DATE OF STUDY: 09/21/[address]: Davis Shields 2-DIMENSIONAL: YES M.MODE: YES DOPPLER: YES COLOR FLOW: YES TDS: PORTABLE: YES DEFINITY: BUBBLE STUDY: DIAGNOSIS: ELEVATED TROPONINNO CARDIAC HISTORY: CATHERIZATION: NO SURGERY: NO PROSTHETIC VALVE: NO PACEMAKER: NO MEASUREMENTS (cm) DIASTOLIC (NORMALS) SYSTOLIC (NORMALS) IVSd 1.0 (0.6-1.2) LA Diam 3.8 (1.9-4.0) LVEF 65-70% LVIDd 4.0 (3.5-5.7) LVIDs 2.2 (2.0-3.5) %FS 46% LVPWd 0.9 (0.6-1.2) Ao Diam 3.0 (2.0-3.7) 2 DIMENSIONAL ASSESSMENT: RIGHT ATRIUM: NORMAL LEFT ATRIUM: NORMAL RIGHT VENTRICLE: NORMAL LEFT VENTRICLE: NORMAL TRICUSPID VALVE: NORMAL MITRAL VALVE: NORMAL PULMONIC VALVE: NORMAL AORTIC VALVE: NORMAL PERICARDIAL EFFUSION: NONE AORTIC ROOT: NORMAL LEFT VENTRICULAR WALL MOTION: NORMAL DOPPLER/COLOR FLOW: NORMAL COMMENTS: 1. NORMAL LEFT VENTRICULAR SYSTOLIC FUNCTION, EJECTION FRACTION 65-70%, NORMAL WALL MOTION 2. NORMAL DIASTOLIC DYSFUNCTION TECHNOLOGIST: PATY AVILA
--- NOTE | 2024-09-22 12:40 | EKG ---
Test Date: 2024-09-20 Test Time: 04:20:32 Inseam Leveler: SHELDON MEASUREMENT RESULTS: Intervals: Rate: 85 SC: 182 QRSD: 106 QT: 396 QTc: 471 [place]: P: 30 SC: 182 QRS: 4 T: 3 INTERPRETIVE STATEMENTS: Sinus rhythm with marked sinus arrhythmia Incomplete right bundle branch block Borderline ECG No previous ECG available for comparison Electronically Signed On 09-22-24 12:29:32 CDT by Tushar Campoverde
--- NOTE | 2024-09-22 13:27 | RAD REPORT ---
EXAMINATION: MRI LUMBAR SPINE WITHOUT CONTRAST CLINICAL INDICATION: Back pain. Disc herniation. TECHNIQUE: Multiplanar multisequence MR images were obtained of the lumbar spine without intravenous contrast. Unless otherwise specified, incidental findings do not require dedicated imaging follow-up. [id number]. COMPARISON: No prior exam. FINDINGS: For purposes of this dictation, it is assumed that there are 5 non rib-bearing lumbar type vertebrae, and the most caudal fully segmented lumbar vertebra is labeled L5. L1-2, L2-3, L3-4 and L4-5 unremarkable. Small central disc herniation L5-S1. It minimally encroaches upon the thecal sac. The neural foramina are patent No significant abnormal signal within the bones. IMPRESSION: Small central disc herniation L5-S1 probably not significant.
== END 2024-09-21 18:07 | disposition home or self-care (01) | DRG 92 ==
LOC: ER 03:40 → ERHOLD 14:51 → 2ND 16:10
PROVIDERS: ADMIT Hospitalist; ATTEND Internal Medicine
DX: G72.3 Periodic paralysis (principal); I24.89 Other forms of acute ischemic heart disease; E83.39 Other disorders of phosphorus metabolism; F41.9 Anxiety disorder, unspecified; E66.811 Obesity, class 1; M54.50 Low back pain, unspecified; Z68.33 Body mass index [BMI] 33.0-33.9, adult
CPT/HCPCS: 36415; 70450; 71275; 72125; 72141; 72146; 72148; 74175; 80048; 80061; 80307; 81001; 82550; 83735; 84100; 84132; 84439; 84443; 84484; 85025; 93005; 93306; 96365; 96366; 96375; 99285; J1650; J3475; J3480; J7030; Q9967